=== PATIENT | male | born 1975 ===

== ENCOUNTER 2021-08-25 08:54 | Day surgery (SDC) | payer OTHER | END 2021-08-25 13:20 | disposition home or self-care (01) | LOC: AMB-ENDOS 08:54 | PROVIDERS: ATTEND Colon & Rectal Surgery | DX: K62.1 Rectal polyp (principal); K63.5 Polyp of colon; K64.8 Other hemorrhoids; Z20.822 Contact with and (suspected) exposure to COVID-19 ==